=== PATIENT | female | born 1935 | race Caucasian/White ===

== ENCOUNTER → 2017-03-20 | Outpatient (CLI) | payer MEDICARE, OTHER ==
[~2017-03-20] MED LIST: ACET1TAB12 PO; AMLO10TA57 PO; ASPI-611 PO; CEPH-583 PO; HYDR-2164 PO; LABE200T27 PO; LEVO175T39 PO; LISI40TA4 PO; MECL-103 PO; MULT-806 PO; QUIN40TA PO; SAXA5TAB PO
== END ==
LOC: WC.BC 08:49
DX: Z12.31 Encounter for screening mammogram for malignant neoplasm of breast (principal)
CPT/HCPCS: 77063; G0202